=== PATIENT | male | born 1950 | race Caucasian/White ===

== ENCOUNTER → 2016-10-23 | Outpatient (REF) | payer MEDICARE, MEDICAID ==
[~2016-10-23] MED LIST: /HCTZ25TA GT; IRON65TA PO; MULTTAB22 PO; PANT40TA2 PO; PROP1TAB29 PO; RIBAPOW11 XX; [UNRECOGNIZED DRUG - CODE] SC; [UNRECOGNIZED DRUG - OTHER]
[2016-10-23 11:38] LABS: ADD MANUAL DIFFER YES; DIFF SLIDE NUMBER 155; MEAN CORPUSCULAR HEMOGLOBIN 23.8 pg (27.0-33.0); MEAN CORPUSCULAR HGB CONC 29.4 g/dl (32.0-36.5); MEAN CORPUSCULAR VOLUME 80.8 fl (80.0-96.0); RED CELL DISTRIBUTION WIDTH 16.7 % (11.5-14.5)
[2016-10-23 11:46] LABS: WHITE BLOOD COUNT 2.9 K/mm3 (4.0-10.0)
[2016-10-23 11:47] LABS: PLATELET COUNT, AUTOMATED 97 k/mm3 (150-450)
[2016-10-23 11:50] LABS: EOSINOPHILS 6 % (0-5)
[2016-10-23 11:51] LABS: ANISOCYTOSIS 1+; HYPOCHROMASIA 2+
[2016-10-23 12:09] LABS: ALBUMIN 3.2 GM/DL (3.2-5.2); ALBUMIN/GLOBULIN RATIO 0.74 (1.00-1.93); ALKALINE PHOSPHATASE 83 U/L (45-117); ALT/SGPT 18 U/L (12-78); ANION GAP 4 MEQ/L (8-16); AST/SGOT 17 U/L (15-37); BILIRUBIN,TOTAL 0.6 MG/DL (0.2-1.0); BLOOD UREA NITROGEN 15 MG/DL (7-18); CALCIUM LEVEL 8.8 MG/DL (8.8-10.2); CARBON DIOXIDE LEVEL 28 MEQ/L (21-32); CHLORIDE LEVEL 112 MEQ/L (98-107); CHOLESTEROL LEVEL 104 MG/DL (<200); CREATININE FOR GFR 1.13 MG/DL (0.70-1.30); GLOMERULAR FILTRATION RATE > 60.0 (>49); GLUCOSE, FASTING 90 MG/DL (80-110); POTASSIUM SERUM 4.6 MEQ/L (3.5-5.1); SODIUM LEVEL 144 MEQ/L (136-145); TOTAL PROTEIN 7.5 GM/DL (6.4-8.2); TRIGLYCERIDES LEVEL 165 MG/DL (<150); VITAMIN B12 LEVEL 325 PG/ML (247-911)
[2016-10-23 12:10] LABS: FOLATE 14.6 NG/ML (>5.4)
== END ==
LOC: M SFHCCLAY 07:57
PROVIDERS: ATTEND Family Medicine
DX: D69.6 Thrombocytopenia, unspecified (principal); I10 Essential (primary) hypertension; D64.9 Anemia, unspecified; E78.00 Pure hypercholesterolemia, unspecified
CPT/HCPCS: 80053; 80061; 82607; 82746; 83540; 85025; G0463

== ENCOUNTER → 2016-11-17 | Outpatient (REF) | payer MEDICARE, MEDICAID | LOC: M SFHCCLAY 18:54 | PROVIDERS: ATTEND Family Medicine | DX: D69.6 Thrombocytopenia, unspecified (principal); D64.9 Anemia, unspecified; B18.2 Chronic viral hepatitis C ==

== ENCOUNTER → 2016-12-22 | Outpatient (CLI) | payer MEDICARE, MEDICAID ==
[2016-12-22 14:46] LABS: BASO % 0.4 % (0.0-1.0); EOS # 0.1 10^3/uL (0.0-0.50); IMMATURE GRANULOCYTE % 0.4 % (0-0); LYMPH # 0.9 10^3/uL (1.5-4.5); LYMPH % 33.5 % (24.0-44.0); MEAN CORPUSCULAR HEMOGLOBIN 27.1 pg (27.0-33.0); MEAN CORPUSCULAR HGB CONC 30.1 g/dl (32.0-36.5); MONO # 0.7 10^3/uL (0.0-0.8); MONO % 24.5 % (0.0-5.0); NEUTROPHILS % 37.2 % (36.0-66.0); WHITE BLOOD COUNT 2.8 10^3/uL (4.0-10.0)
[2016-12-22 14:48] LABS: ADD MORPHOLOGY? YES; PLATELET COUNT, AUTOMATED 99 10^3/uL (150-450); POSITIVE MORPH POS FLAG; RED CELL DISTRIBUTION WIDTH 24.8 % (11.5-14.5)
[2016-12-22 14:50] LABS: IMMATURE PLATELET FRACTION % 10.8 % (0.0-10.9)
[2016-12-22 14:57] LABS: INR 1.13
[2016-12-22 15:15] LABS: ANISOCYTOSIS 1+; HYPOCHROMASIA 1+; MICROCYTOSIS 1+
[2016-12-24 10:31] LABS: HEPATITIS B SURFACE ANTIBODY NEGATIVE (POSITIVE)
== END ==
LOC: M LAB 14:04
PROVIDERS: ATTEND Internal Medicine Gastroenterology
DX: D50.0 Iron deficiency anemia secondary to blood loss (chronic) (principal); K21.9 Gastro-esophageal reflux disease without esophagitis; I10 Essential (primary) hypertension; R79.1 Abnormal coagulation profile; B18.0 Chronic viral hepatitis B with delta-agent; Z79.899 Other long term (current) drug therapy

== ENCOUNTER 2016-12-23 06:52 | Day surgery (SDC) | payer MEDICARE, MEDICAID ==
[~2016-12-23] VITALS: Ht 182.9 cm; Wt 90.7 kg
[2016-12-23] MEDS ORDERED: NS 1,000 ML IV SCH (07:15)
[2016-12-23] MEDS ORDERED: SIMETHICONE 40MG/0.6ML DROPS 30ML As Ordered ONE (07:23)
[2016-12-23] MEDS ORDERED: PROPOFOL 200 MG/20 ML VIAL As Ordered ONE ×2 (07:51→07:52)
[2016-12-23] MEDS ORDERED: LIDOCAINE 2% INJ 100 MG/5 ML SDV (FOR ANES.) As Ordered ONE (07:52)
[2016-12-23] MEDS ORDERED: ONDANSETRON 4MG/2ML VIAL (J2405) As Ordered ONE (08:09)
--- NOTE | 2016-12-23 08:09 | ROOR ---
Patient Name: Jacinto Arevalo Procedure Date: 12/23/2016 7:33 AM Date of : 1950 Age: 66 Room: [facility] Gender: Male Note Status: Finalized Procedure: Upper GI endoscopy Indications: Iron deficiency anemia Providers: Timmy Hanna MD Referring MD: LUKAS LYNNE DO Requesting Provider: Medicines: Monitored Anesthesia Care Complications: No immediate complications. Procedure: Pre-Anesthesia Assessment: - Prior to the procedure, a History and Physical was performed, and patient medications and allergies were reviewed. The patient is competent. The risks and benefits of the procedure and the sedation options and risks were discussed with the patient. All questions were answered and informed consent was obtained. Patient identification and proposed procedure were verified by the physician, the nurse and the photo tech in the procedure room. Mental Status Examination: alert and oriented. Airway Examination: normal oropharyngeal airway and neck mobility. Respiratory Examination: clear to auscultation. CV Examination: normal. Prophylactic Antibiotics: The patient does not require prophylactic antibiotics. Prior Anticoagulants: The patient has taken no previous anticoagulant or antiplatelet agents. ASA Grade Assessment: III - A patient with severe systemic disease. After reviewing the risks and benefits, the patient was deemed in satisfactory condition to undergo the procedure. The anesthesia plan was to use monitored anesthesia care (MAC). Immediately prior to administration of medications, the patient was re-assessed for adequacy to receive sedatives. The heart rate, respiratory rate, oxygen saturations, blood pressure, adequacy of pulmonary ventilation, and response to care were monitored throughout the procedure. The physical status of the patient was re-assessed after the procedure. The Endoscope was introduced through the mouth, and advanced to the second part of duodenum. The upper GI endoscopy was accomplished without difficulty. The patient tolerated the procedure well. Findings: Two columns of non-bleeding small (< 5 mm) varices were found in the lower third of the esophagus,. No stigmata of recent bleeding were evident and no red kassie signs were present. 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 Coagulation for bleeding prevention using argon plasma at 1 liter/minute and 30 pollack was successful. The duodenal bulb and second portion of the duodenum were normal. Impression: - Non-bleeding small (< 5 mm) esophageal varices. - Gastric antral vascular ectasia without bleeding. Treated with argon plasma coagulation (APC). - Normal duodenal bulb and second portion of the duodenum. - No specimens collected. Recommendation: - Patient has a contact number available for emergencies. The signs and symptoms of potential delayed complications were discussed with the patient. Return to normal activities tomorrow. Written discharge instructions were provided to the patient. - Clear liquid diet today, then advance as tolerated to resume regular diet. - Continue present medications. - Use Protonix (pantoprazole) 40 mg PO daily for 8 weeks. - Repeat upper endoscopy in 8 weeks for retreatment. - Return to GI clinic in 1 - 2 weeks. Please call GI clinic @ [phone] to make follow up appointment. - Return to primary care physician. Timmy Hanna MD Timmy Hanna MD 12/23/2016 8:09:37 AM This report has been signed electronically. Number of Addenda: 0 Note Initiated On: 12/23/2016 7:33 AM Estimated Blood Loss: Estimated blood loss was minimal.
[2016-12-23] MEDS ORDERED: ONDANSETRON 4MG/2ML VIAL (J2405) IV ONE (08:15)
[2016-12-23 08:31] VITALS: BP 111/62
== END 2016-12-23 09:02 | disposition home or self-care (01) ==
LOC: M OPP 06:52 → EDSTATUS 09:30
PROVIDERS: ATTEND Internal Medicine Gastroenterology
DX: D50.9 Iron deficiency anemia, unspecified (principal); I85.00 Esophageal varices without bleeding; K31.819 Angiodysplasia of stomach and duodenum without bleeding; I10 Essential (primary) hypertension; K21.9 Gastro-esophageal reflux disease without esophagitis; B18.2 Chronic viral hepatitis C; R06.83 Snoring; K74.60 Unspecified cirrhosis of liver; Z86.73 Personal history of transient ischemic attack (TIA), and cerebral infarction without residual deficits; Z79.899 Other long term (current) drug therapy
CPT/HCPCS: 43255; J2405

== ENCOUNTER 2017-01-27 13:53 | Inpatient (IN) | payer MEDICARE, MEDICAID ==
[~2017-01-27] VITALS: Ht 182.9 cm; Wt 102.3 kg
[2017-01-27] MEDS: OCUVITE 1 TAB PO SCH (09:00)
[2017-01-27] MEDS: PANTOPRAZOLE 40MG INJ (PROTONIX) (C9113) IV SCH ×2 (09:00→22:54)
[~2017-01-27 13:53] MED LIST changes: -ACET50TAOT PO; -CIPR-249 PO; -NS 1,000 ML IV ONE; -OCTR50IN SUBQ
--- NOTE | 2017-01-27 14:31 | HPEPDOC ---
[facility] Medical History & Physical Date of Admission Jan 27, 2017 History and Physical ATTENDING: Dr. Pedersen PCP: Dr Garcia Transactional Paralegal. Dr Hanna. CC: GI bleeding HPI: 66yoM with a past medical history significant for history of hepatitis C, cirrhosis, esophageal varices S/P APC 12/23 scheduled at [facility] for EGD with possible ablation today as per Dr Hanna. The patient was noted to have a hemoglobin of 6.3 on labs 01/27/17. He also reports recent dark stools. The patient's procedure has been postponed until 01/[address] Hanna. Denies any fevers, chills, weakness, fatigue, SANON, CP, SOB, cough, palpitations, abdominal pain, N/V/D or changes in bladder habits. Upon presentation to the hospital the patient was found to have GI bleeding, thus the hospitalist team was consulted. PMHx: History of hepatitis C. Treated as per infectious disease, Dr. Sherwood 2011. Cirrhosis Hypertension GERD Esophageal varices Iron deficiency anemia PSHX: Repair of right wrist fracture EGD 12/23/16, Dr. Hanna. Esophageal varices, gastric antral and vascular ectasia status post APC. SOCHX: Resides in: [facility] Marital Status: Kids: 3 Employment: Retired [employer] Tobacco use: Denies ETOH: Denies Illicit Drugs: History of marijuana in the past Recent travel: Patient states moving to [place] in the near future Advanced directives: None FAMHX: Mother: , old age Siblings: One sister breast cancer and lung cancer. Brother Parkinson's disease. Children: Alive, history of seizure disorder, renal cancer ROS: As noted in HPI, otherwise 11pt ROS of systems reviewed and unremarkable. PE: GEN: 66 yo M, appears stated age. Well-nourished, well developed. No acute distress. Alert and oriented x 3. Pleasant, interactive. HEENT: Normocephalic, atraumatic. Pupils are equal, round, and reactive to light. Extraocular movements are intact. No nystagmus appreciated. Sclera are nonicteric. Conjunctiva without injection. Nose midline. No facial asymmetry. Moist mucous membranes. Pharynx pale appearing and moist. Neck supple, trachea midline. No lymphadenopathy or thyromegaly appreciated. CHEST: Regular rate and rhythm, +S1, +S2 LUNGS: Clear to auscultation bilaterally. No wheezes, rales, or rhonchi. Breathing appears symmetric and easy. Patient is speaking in full sentences. No accessory muscle use. ABD: Round, soft, non-tender, non-distended. +Bowel sounds throughout. No rebound or guarding. No costovertebral angle tenderness. EXT: Pulses 2+ bilaterally dorsalis pedis and radial. No lower extremity edema appreciated. SKIN: Pale appearing, dry, warm. Capillary refill <2sec. No rashes. NEURO: Alert and oriented x 3. Cranial nerves III-XII are intact. No focal deficits appreciated. A&P: 66yoM with a past medical history significant for history of hepatitis C , cirrhosis, esophageal varices S/P APC 12/23 scheduled at [facility] for EGD with possible ablation today as per Dr Hanna. The patient was noted to have a hemoglobin of 6.3 on labs 01/27/17. He also reports recent dark stools. The patient's procedure has been postponed until 01/[address] Hanna. 1. The patient will be admitted to PCU for at least [address] Pedersen's service. Pt is discussed with Dr Gutiérrez. 2. GI bleeding. Consent for blood products placed on chart. Type and cross, transfuse 2 units PRBCs. One unit platelets. IV Protonix 40 mg twice a day. Monitor every [address] Hanna consulted and aware. 3. History of esophageal varices/gastric antral vascular ectasia. Status post APC 12/23/16. Plan is for EGD with possible ablation procedure 01/28/[address] Hanna. Propranolol 20 mg po daily. PPI. 4. H/O Iron deficiency anemia. 5. History of hepatitis C status post treatment as per Dr. Sherwood. 6. Cirrhosis. 7. Hypertension. DVT prophylaxis. SCD/TEDS The patient is a Full code. Laboratory Data Labs 24H Item Value Date Time White Blood Count 2.4 10^3/uL L 01/27/17 1246 Red Blood Count 1.91 10^6/uL L 01/27/17 1246 Hemoglobin 6.3 g/dl *L 01/27/17 1246 Hematocrit 20.3 % L 01/27/17 1246 Mean Corpuscular Volume 106.3 fl H 01/27/17 1246 Mean Corpuscular Hemoglobin 33.0 pg 01/27/17 1246 Mean Corpuscular Hemoglobin Concent 31.0 g/dl L 01/27/17 1246 Red Cell Distribution Width % 01/27/17 1246 Platelet Count 34 10^3/uL L 01/27/17 1246 Sodium Level 144 MEQ/L 10/23/16 0821 Potassium Level 4.6 MEQ/L 10/23/16 0821 Chloride Level 112 MEQ/L H 10/23/16 0821 Carbon Dioxide Level 28 MEQ/L 10/23/16 0821 Anion Gap 4 MEQ/L L 10/23/16 0821 Blood Urea Nitrogen 20 MG/DL H 01/27/17 1246 Creatinine 1.03 MG/DL 01/27/17 1246 Glomerular Filtration Rate > 60.0 01/27/17 1246 Fasting Glucose 90 MG/DL 10/23/16 0821 Calcium Level 8.8 MG/DL 10/23/16 0821 Iron Level 202 UG/DL H 01/27/17 1246 Total Iron Binding Capacity 348 UG/DL 01/27/17 1246 Transferrin % Saturation 58.0 % H 01/27/17 1246 Ferritin 94 NG/ML 01/27/17 1246 Total Bilirubin 0.6 MG/DL 01/27/17 1246 Direct Bilirubin 0.2 MG/DL 01/27/17 1246 Home Medications Scheduled (Multi For Him) 1 Tab Tab, 1 TAB PO DAILY Ciprofloxacin HCl (Cipro) 500 Mg Tab, 500 MG PO BID Octreotide Acetate (Octreotide Acetate) 50 Mcg/Ml Inj, 50 MCG SUBQ DAILY Pantoprazole Sodium (Pantoprazole Sodium) 40 Mg Tab, 40 MG PO BID Propranolol HCl (Propranolol HCl) 20 Mg Tab, 20 MG PO BID Scheduled PRN Acetaminophen (Acetaminophen) 500 Mg Tab, 1,000 MG PO for HEADACHE Allergies Coded Allergies: No Known Drug Allergy (Verified Allergy, Unknown, 12/22/16) Sissy Cruz Jan 27, 2017 14:31
[2017-01-27 14:42] VITALS: BP 109/55
[2017-01-27] MEDS ORDERED: ACETAMINOPHEN TAB 650MG DOSE (2X325MG) PO PRN (14:45)
[2017-01-27 16:10] VITALS: BP_SYST 105; BP_SYST 113; BP_SYST 97; BP_DIAS 50; BP_DIAS 54; BP_DIAS 58
[2017-01-27] MEDS ORDERED: ACET50TAOT PO (16:58)
--- NOTE | 2017-01-27 17:44 | IPNPDOC ---
Text Note Date of Service The patient was seen on 01/27/17. NOTE Called Dr Barrera for pancytopenia, awaiting call back. Consider outpatient hematology workup. lab sent HO,[place], I+O VS, [place], I+O Vital Signs Date Time Temp Pulse Resp B/P (MAP) Pulse Ox O2 Delivery O2 Flow Rate FiO2 01/27/17 16:10 66 113/58 (76) 72 97/50 (66) 82 105/54 (71) 01/27/17 14:42 98.0 18 99 Room Air KAROLINA VARMA MD Jan 27, 2017 17:44
[2017-01-27 19:45] VITALS: BP 124/61
[2017-01-28] VITALS (9 sets, daily range): BP systolic 103–155; BP diastolic 57–81
[2017-01-28 00:40] LABS: MEAN CORPUSCULAR HEMOGLOBIN 32.7 pg (27.0-33.0); MEAN CORPUSCULAR HGB CONC 32.2 g/dl (32.0-36.5); MEAN CORPUSCULAR VOLUME 101.5 fl (80.0-96.0); PLATELET COUNT, AUTOMATED 40 10^3/uL (150-450); RED CELL DISTRIBUTION WIDTH 25.7 % (11.5-14.5); WHITE BLOOD COUNT 2.1 10^3/uL (4.0-10.0)
[2017-01-28 00:48] LABS: RETIC HEMOGLOBIN EQUIVALENT 39.6 pg (24-36); RETICULOCYTE % 1.7 % (0.5-1.5)
[2017-01-28 00:49] LABS: REASON FOR REVIEW COMPREHENSIVE REVIEW
[2017-01-28 01:00] LABS: ANION GAP 5 MEQ/L (8-16); BLOOD UREA NITROGEN 17 MG/DL (7-18); CARBON DIOXIDE LEVEL 25 MEQ/L (21-32); CHLORIDE LEVEL 111 MEQ/L (98-107); CREATININE FOR GFR 0.93 MG/DL (0.70-1.30); GLOMERULAR FILTRATION RATE > 60.0 (>49); GLUCOSE, FASTING 86 MG/DL (80-110); POTASSIUM SERUM 4.1 MEQ/L (3.5-5.1); SODIUM LEVEL 141 MEQ/L (136-145)
[2017-01-28 01:01] LABS: CALCIUM LEVEL 8.1 MG/DL (8.8-10.2); MAGNESIUM LEVEL 1.9 MG/DL (1.8-2.4)
[2017-01-28 01:02] LABS: INR 1.16
[2017-01-28] MEDS ORDERED: CEFTRIAXONE SOD 1 GM in APPROPRIATE DILUENT 1 EA IV STA (09:22)
[2017-01-28] MEDS: PANTOPRAZOLE 40MG INJ (PROTONIX) (C9113) IV SCH ×2 (09:50→20:25)
[2017-01-28 09:57] LABS: VITAMIN B12 LEVEL 301 PG/ML (247-911)
[2017-01-28 09:58] LABS: FOLATE 17.3 NG/ML (>5.4)
[2017-01-28] MEDS ORDERED: OCTREOTIDE ACETATE 1,200 MCG in NS 238.8 ML IV SCH (10:00)
[2017-01-28] MEDS ORDERED: OCTREOTIDE ACETATE 100 MCG/ML VIAL (J2354) IV ONE (10:00)
[2017-01-28 10:15] LABS: MEAN CORPUSCULAR HEMOGLOBIN 31.4 pg (27.0-33.0); MEAN CORPUSCULAR HGB CONC 33.5 g/dl (32.0-36.5); MEAN CORPUSCULAR VOLUME 93.8 fl (80.0-96.0); RED CELL DISTRIBUTION WIDTH 23.6 % (11.5-14.5)
[2017-01-28 10:22] LABS: PLATELET COUNT, AUTOMATED 44 10^3/uL (150-450); POS COUNT POS FLAG
[2017-01-28 10:40] LABS: ALBUMIN 2.9 GM/DL (3.2-5.2); ALBUMIN/GLOBULIN RATIO 0.88 (1.00-1.93); ALKALINE PHOSPHATASE 66 U/L (45-117); ALT/SGPT 26 U/L (12-78); ANION GAP 6 MEQ/L (8-16); AST/SGOT 23 U/L (7-37); BILIRUBIN,TOTAL 2.2 MG/DL (0.2-1.0); BLOOD UREA NITROGEN 15 MG/DL (7-18); CALCIUM LEVEL 8.5 MG/DL (8.8-10.2); CARBON DIOXIDE LEVEL 24 MEQ/L (21-32); CHLORIDE LEVEL 111 MEQ/L (98-107); CREATININE FOR GFR 0.93 MG/DL (0.70-1.30); GLOMERULAR FILTRATION RATE > 60.0 (>49); GLUCOSE, FASTING 89 MG/DL (80-110); MAGNESIUM LEVEL 1.9 MG/DL (1.8-2.4); POTASSIUM SERUM 4.4 MEQ/L (3.5-5.1); SODIUM LEVEL 141 MEQ/L (136-145); TOTAL PROTEIN 6.2 GM/DL (6.4-8.2)
[2017-01-28] MEDS ORDERED: PROPOFOL 200 MG/20 ML VIAL As Ordered ONE (12:03)
[2017-01-28] MEDS ORDERED: LIDOCAINE 2% INJ 100 MG/5 ML SDV (FOR ANES.) As Ordered ONE (12:03)
--- NOTE | 2017-01-28 12:42 | ROOR ---
Patient Name: Jacinto Arevalo Procedure Date: 01/28/2017 11:52 AM Date of : 1950 Age: 66 Room: [facility] Gender: Male Note Status: Finalized Procedure: Upper GI endoscopy Indications: Active gastrointestinal bleeding, Watermelon stomach (GAVE syndrome) Providers: Timmy Hanna MD Referring MD: 2. Inpatient 2. Inpatient Requesting Provider: Medicines: Monitored Anesthesia Care Complications: No immediate complications. Procedure: Pre-Anesthesia Assessment: - Prior to the procedure, a History and Physical was performed, and patient medications and allergies were reviewed. The patient is competent. The risks and benefits of the procedure and the sedation options and risks were discussed with the patient. All questions were answered and informed consent was obtained. Patient identification and proposed procedure were verified by the physician, the nurse and the lap winder in the procedure room. Mental Status Examination: alert and oriented. Airway Examination: normal oropharyngeal airway and neck mobility. Respiratory Examination: clear to auscultation. CV Examination: normal. Prophylactic Antibiotics: The patient does not require prophylactic antibiotics. Prior Anticoagulants: The patient has taken no previous anticoagulant or antiplatelet agents. ASA Grade Assessment: III - A patient with severe systemic disease. After reviewing the risks and benefits, the patient was deemed in satisfactory condition to undergo the procedure. The anesthesia plan was to use monitored anesthesia care (MAC). Immediately prior to administration of medications, the patient was re-assessed for adequacy to receive sedatives. The heart rate, respiratory rate, oxygen saturations, blood pressure, adequacy of pulmonary ventilation, and response to care were monitored throughout the procedure. The physical status of the patient was re-assessed after the procedure. The Endoscope was introduced through the mouth, and advanced to the second part of duodenum. The upper GI endoscopy was accomplished without difficulty. The patient tolerated the procedure well. Findings: One column of non-bleeding grade I, small (< 5 mm) varices were found in the lower third of the esophagus,. No stigmata of recent bleeding were evident and no red kassie signs were present. 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 Coagulation for bleeding prevention using argon plasma at 0.8 liters/minute and 35 pollack was successful. Estimated blood loss: none. A few dispersed, 6 mm non-bleeding erosions were found in the gastric antrum. There were no stigmata of recent bleeding. Moderate portal hypertensive gastropathy was found in the entire examined stomach. No evidence of gastric varices on detailed exam No gross lesions were noted in the duodenal bulb and in the second portion of the duodenum. Impression: - Non-bleeding grade I and small (< 5 mm) esophageal varices. - Gastric antral vascular ectasia without bleeding. Treated with argon plasma coagulation (APC). - Non-bleeding erosive gastropathy. - Portal hypertensive gastropathy. No evidence of gastric varices on detailed exam. - No gross lesions in the duodenal bulb and in the second portion of the duodenum. - No specimens collected. Recommendation: - Patient has a contact number available for emergencies. The signs and symptoms of potential delayed complications were discussed with the patient. Return to normal activities tomorrow. Written discharge instructions were provided to the patient. - Resume previous diet. - Continue present medications. - Await pathology results. - Use a proton pump inhibitor IV BID today and then switch to oral pantoprazole 40 mg twice daily for atleast 3 months. - Ceftriaxone 1gm daily for 1 day followed by Cipro (ciprofloxacin) 500 mg PO BID for 1 week. - Repeat upper endoscopy in 1 month for retreatment. - Follow other recommendations as per the GI consult follow up note. - Return to GI clinic in 1 week. - Return to primary care physician. Timmy Hanna MD Timmy Hanna MD 01/28/2017 12:41:58 PM This report has been signed electronically. Number of Addenda: 0 Note Initiated On: 01/28/2017 11:52 AM Estimated Blood Loss: Estimated blood loss was minimal.
--- NOTE | 2017-01-28 13:40 | IPNPDOC ---
Date Seen The patient was seen on 01/28/17. Progress Note Interval history: Patient continues to have dark stools but no melanotic. Recieved total 5 PRBC transfusion and 2 Packs of platelets. Patient was started on IV antibiotics and Octreotide ( due to requirement of 5 units of PRBC wanted to include therapy for possible gastric varices). Patient underwent EGD in [facility] today. Patient tolerated EGD well. No immediate post procedure complications. EGD findings: - Non- bleeding grade 1, small esophageal varix. Gastric erosions and portal Hypertensive gastropathy. NO gastric varices on detailed exam. Noted Gastric antral vascular ectasia - with active bleeding/ oozing of blood. Treated with APC. No eren lesions in examined duodenum. Physical exam post procedure: Vitals: stable. Chest: bilateral clear air entry. Normal heart sounds. Abdomen: soft, Non distended, normal bowel sounds. 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 -- Erosive gastropathy ( likely from prior therapy). Recommendations: -- Full liquid diet for today. -- to give one more bag of platelets today. -- Give IV pantoprazole 40 mg twice daily for today and then switch to oral Pantoprazole 40 mg twice daily - to be taken registered art therapist on empty stomach and before bedtime for total of 3 months. -- Can change the antibiotics to oral Ciprofloxacin 50 mg twice daily for 7 days. -- Repeat upper GI endoscopy in 1 month. -- Will hold propranolol for now and resume at the time of discharge at 10 mg twice daily dose. -- Low salt diet (2gm sodium diet). Daily weights. Complete cessation of alcohol and Avoid NSAIDS. -- Will give octreotide subcutaneous injections for 4 weeks. ( discussed the empiric benefits and risks of this medication with patient and he agreed). -- Patient needs to set up new Gi after he moves to [place] for further management. -- Needs HCC surveillance ( AFP and USG liver) every 6 months - can be done at PMD clinic as well. -- Liver transplant referral electively based on the MELD and clinical course. -- Follow up in GI clinic 1 -2 weeks VS, I&O, 24H, Fishbone Vital Signs/I&O Vital Signs Date Time Temp Pulse Resp B/P (MAP) Pulse Ox O2 Delivery O2 Flow Rate FiO2 01/28/17 13:32 97.8 65 18 151/73 (99) 96 Room Air I&O- Last 24 Hours up to 6 AM 01/29/17 06:00 Intake Total 331 ml Output Total 850 ml Balance -519 ml Laboratory Data CBC/BMP Laboratory Tests 01/28/17 00:22 Red Blood Count 2.02 L, Mean Corpuscular Volume 101.5 H, Mean Corpuscular Hemoglobin 32.7, Mean Corpuscular Hemoglobin Concent 32.2, Red Cell Distribution Width 25.7 H, Calcium Level 8.1 L 01/28/17 10:05 Red Blood Count 2.90 L, Mean Corpuscular Volume 93.8, Mean Corpuscular Hemoglobin 31.4, Mean Corpuscular Hemoglobin Concent 33.5, Red Cell Distribution Width 23.6 H, Calcium Level 8.5 L, Aspartate Amino Transf (AST/SGOT ) 23, Alanine Aminotransferase (ALT/SGPT) 26, Alkaline Phosphatase 66, Total Bilirubin 2.2 #H, Total Protein 6.2 L, Albumin 2.9 L PIPER FERREIRA MD Jan 28, 2017 13:40
[2017-01-28] MEDS: PROPRANOLOL 20 MG TAB PO SCH (13:56)
[2017-01-28] MEDS: OCUVITE 1 TAB PO SCH (13:56)
[2017-01-28 16:23] LABS: BASO % 0.4 % (0.0-1.0); EOS # 0.1 10^3/uL (0.0-0.50); EOS % 2.4 % (0.0-3.0); IMMATURE GRANULOCYTE % 0.4 % (0-0); LYMPH # 0.5 10^3/uL (1.5-4.5); LYMPH % 19.7 % (24.0-44.0); MEAN CORPUSCULAR HEMOGLOBIN 31.8 pg (27.0-33.0); MEAN CORPUSCULAR HGB CONC 33.3 g/dl (32.0-36.5); MEAN CORPUSCULAR VOLUME 95.5 fl (80.0-96.0); MONO # 0.6 10^3/uL (0.0-0.8); MONO % 22.5 % (0.0-5.0); NEUTROPHILS # 1.4 10^3/uL (1.8-7.7); NEUTROPHILS % 54.6 % (36.0-66.0); RED CELL DISTRIBUTION WIDTH 24.3 % (11.5-14.5); WHITE BLOOD COUNT 2.5 10^3/uL (4.0-10.0)
[2017-01-28 16:26] LABS: PLATELET COUNT, AUTOMATED 43 10^3/uL (150-450)
[2017-01-28 16:27] LABS: IMMATURE PLATELET FRACTION % 7.6 % (0.0-10.9)
--- NOTE | 2017-01-28 18:26 | IPNPDOC ---
Text Note Date of Service The patient was seen on 01/28/17. NOTE Subjective: Patient is a 66 year-old male with a PMHx of HTN, Cirrossis 2/2 Hepatitis C, Esophageal varices, BARON and GERD who presented to [facility] as a direct admission for an EGD with Dr. Hanan. Patient received an EGD on 01/28 that revealed nonbleeding grade 1 and small esophageal varices gastric antral vascular ectasia without bleeding - s/p argon plasma coagulation, nonbleeding erosive gastropathy, portal hypertensive gastropathy. Patient was brought back to telemetry floor and continued with octreotide and H& H checks. Patient was seen and examined at the bedside. Currently, he denies any nausea, vomiting, chest pain, shortness of breath, palpitations, or abdominal pain. Vision is noted that he has experienced dark stools in the past, however, currently his stools are not as dark as before. Denies any dysuria. Objective: Vitals (See below) General: Lying in bed, no acute distress, comfortable, AAOx3 HEENT: NC, AT CVS: RRR, +S1S2 Lungs: Fair air entry b/l, -w/r/r Abdomen: Soft, ND, NT Extremities: - Edema, - Calf tenderness Assessment and plan: Acute blood loss anemia - 2/2 upper GI bleed - Presented as a direct admission from gastroenterology's office - Maintained hemodynamically stable, physical was nonrevealing - Found to be anemic on admission; hemoglobin of 6.6 - s/p 5 units PRBC 2 units plateletpheresis - Plan for transfusion of one additional unit of platelet - EGD 01/28: nonbleeding grade 1 and small esophageal varices, gastric antral vascular ectasia without bleeding - s/p argon plasma coagulation, nonbleeding erosive gastropathy, portal hypertensive gastropathy - Hemoglobin stable after 6 hours posttransfusion - Will continue to follow hemoglobin every 6 hours until tomorrow morning - Continue octreotide drip and Protonix IV twice a day - Patient has been cleared by gastroenterology for discharge home tomorrow; if hemoglobin remains stable - Discharge on Protonix 40 twice a day, Octreotide 50 mcg daily subcutaneously, Propranolol 20 twice a day, Ciprofloxacin 500 mg twice a day - Discussed case with hand zipper trimmer, Dr. Hanna; appreciate his input HTN Cirrhosis 2/2 Hepatitis C Esophageal varices BARON - Continue with multivitamins GERD - Currently on Protonix DVT prophylaxis - Continue with these compression devices VS,Fishbone, I+O VS, Fishbone, I+O Laboratory Tests 01/28/17 00:22 Red Blood Count 2.02 L, Mean Corpuscular Volume 101.5 H, Mean Corpuscular Hemoglobin 32.7, Mean Corpuscular Hemoglobin Concent 32.2, Red Cell Distribution Width 25.7 H, Calcium Level 8.1 L 01/28/17 10:05 Red Blood Count 2.90 L, Mean Corpuscular Volume 93.8, Mean Corpuscular Hemoglobin 31.4, Mean Corpuscular Hemoglobin Concent 33.5, Red Cell Distribution Width 23.6 H, Calcium Level 8.5 L, Aspartate Amino Transf (AST/SGOT ) 23, Alanine Aminotransferase (ALT/SGPT) 26, Alkaline Phosphatase 66, Total Bilirubin 2.2 #H, Total Protein 6.2 L, Albumin 2.9 L 01/28/17 15:49 Red Blood Count 2.92 L, Mean Corpuscular Volume 95.5, Mean Corpuscular Hemoglobin 31.8, Mean Corpuscular Hemoglobin Concent 33.3, Red Cell Distribution Width 24.3 H, Neutrophils (%) (Auto) 54.6, Lymphocytes (%) (Auto) 19.7 L, Monocytes (%) (Auto) 22.5 H, Eosinophils (%) (Auto) 2.4, Basophils (%) ( Auto) 0.4, Neutrophils # (Auto) 1.4 L, Lymphocytes # (Auto) 0.5 L, Monocytes # ( Auto) 0.6, Eosinophils # (Auto) 0.1, Basophils # (Auto) 0.0 Vital Signs Date Time Temp Pulse Resp B/P (MAP) Pulse Ox O2 Delivery O2 Flow Rate FiO2 01/28/17 16:00 99.2 64 18 144/81 (102) 96 Room Air I&O- Last 24 Hours up to 6 AM 01/29/17 06:00 Intake Total 531 ml Output Total 1550 ml Balance -1019 ml STEPHEN THOMAS MD Jan 28, 2017 18:26
[2017-01-29 01:43] LABS: MEAN CORPUSCULAR HEMOGLOBIN 32.4 pg (27.0-33.0); MEAN CORPUSCULAR HGB CONC 33.7 g/dl (32.0-36.5); RED CELL DISTRIBUTION WIDTH 24.4 % (11.5-14.5); WHITE BLOOD COUNT 2.2 10^3/uL (4.0-10.0)
[2017-01-29 01:45] LABS: PLATELET COUNT, AUTOMATED 48 10^3/uL (150-450)
[2017-01-29 04:00] VITALS: BP 125/57
[2017-01-29 06:13] LABS: MEAN CORPUSCULAR HEMOGLOBIN 32.3 pg (27.0-33.0); MEAN CORPUSCULAR HGB CONC 33.8 g/dl (32.0-36.5); MEAN CORPUSCULAR VOLUME 95.4 fl (80.0-96.0); RED CELL DISTRIBUTION WIDTH 24.2 % (11.5-14.5)
[2017-01-29 06:26] LABS: POS COUNT POS FLAG
[2017-01-29 06:27] LABS: PLATELET COUNT, AUTOMATED 49 10^3/uL (150-450)
[2017-01-29 06:28] LABS: ALBUMIN/GLOBULIN RATIO 0.86 (1.00-1.93); ALKALINE PHOSPHATASE 72 U/L (45-117); ALT/SGPT 27 U/L (12-78); ANION GAP 6 MEQ/L (8-16); AST/SGOT 26 U/L (7-37); BLOOD UREA NITROGEN 14 MG/DL (7-18); CALCIUM LEVEL 8.4 MG/DL (8.8-10.2); CARBON DIOXIDE LEVEL 26 MEQ/L (21-32); CHLORIDE LEVEL 110 MEQ/L (98-107); CREATININE FOR GFR 1.04 MG/DL (0.70-1.30); GLOMERULAR FILTRATION RATE > 60.0 (>49); GLUCOSE, FASTING 97 MG/DL (80-110); POTASSIUM SERUM 4.2 MEQ/L (3.5-5.1); SODIUM LEVEL 142 MEQ/L (136-145); TOTAL PROTEIN 6.5 GM/DL (6.4-8.2)
[2017-01-29 08:00] VITALS: BP 154/76
[2017-01-29] MEDS ORDERED: OCTR50IN SUBQ (09:44)
[2017-01-29] MEDS ORDERED: CIPR-249 PO (09:44)
[2017-01-29] MEDS ORDERED: PROP1TAB29 PO (09:44)
[2017-01-29] MEDS ORDERED: PANT40TA2 PO (09:44)
[2017-01-29 10:06] VITALS: BP 154/76
[2017-01-29] MEDS: PROPRANOLOL 20 MG TAB PO SCH (10:06)
--- NOTE | 2017-01-30 00:56 | DSES ---
DATE OF ADMISSION: 01/27/2017 DATE OF DISCHARGE: 01/29/2017 ATTENDING PHYSICIAN: Daniel Pedersen MD. PRIMARY CARE PROVIDER: Dr. Lorenzo. REFERRING PHYSICIAN: None. CONSULTING PHYSICIAN: Dr. Hanna. CONDITION ON DISCHARGE: Stable. FINAL DIAGNOSIS: Upper gastrointestinal (GI) bleed. PROCEDURES: Esophagogastroduodenoscopy (EGD) done 01/28/2017. HISTORY OF PRESENT ILLNESS: The patient is a 66-year-old male with a past medical history of hypertension, cirrhosis secondary to hepatitis C, esophageal varices, iron deficiency anemia, and gastroesophageal reflux disease (GERD), who presented to [facility] as a direct admission for an EGD with Dr. Hanna. The patient received an EGD on 01/28 that revealed non-bleeding grade 1 and small esophageal varices with gastric and antral vascular ectasia without bleeding status post argon plasma coagulation, non-bleeding erosive gastropathy, portal hypertensive gastropathy. Patient was brought back to telemetry floor and continued with an octreotide drip and hemoglobin and hematocrit checks. HOSPITAL COURSE: 1. Acute blood loss anemia secondary to upper GI bleed. Presented as a direct admission from arc welder's office. Patient remained hemodynamically stable throughout hospital course. Physicals were nonrevealing, found to be anemic upon admission with hemoglobin of 6.6. He is status post five units of packed red blood cells (PRBCs) transfusion and two units of platelets transfusion. Patient had an EGD on 01/28 that revealed non-bleeding grade 1 and small esophageal varices, gastric and vascular ectasia without bleeding status post argon plasma coagulation, non-bleeding erosive gastropathy and portal hypertensive gastropathy was noted. Hemoglobin remained stable after transfusion and has remained stable this morning. I have discussed the case in detail with Dr. Hanna. The patient will be discharged home today with Protonix 40 twice a day, propranolol 20 twice a day, ciprofloxacin 500 mg by mouth twice a day for the next 7 days. He has also been given a script for octreotide 50 mcg subcutaneously daily. Pharmacist as an outpatient has been contacted and I have discussed the requirement for preauthorization with Dr. Hanna. He has advised me that at this point octreotide will not be required urgently; however, we will work on pre-approval/preauthorization as an outpatient. 2. Hypertension. 3. Cirrhosis secondary to hepatitis C. 4. Esophageal varices. 5. Iron deficiency anemia. Continue with multivitamin. 6. GERD. Continue with Protonix. 7. Deep venous thrombosis (DVT) prophylaxis. Continue with decompression devices. DISCHARGE MEDICATIONS: Patient will be discharged home with the following medication list: - ciprofloxacin 500 mg by mouth twice a day to be taken as directed - octreotide 50 mcg subcutaneously daily to be taken as directed - multivitamin one tablet by mouth daily - Protonix 40 mg by mouth twice a day - propranolol 20 mg by mouth twice a day DISCHARGE INSTRUCTIONS: Patient has been advised to followup with his primary care provider, Dr. Lorenzo and his arc welder, Dr. Hanna within the next 7 days. He has been advised to remain compliant with medications and to return to the emergency room if he experiences any problems. Time spent on discharge greater than 35 minutes.
== END 2017-01-29 10:33 | disposition home or self-care (01) | DRG 378 ==
LOC: M PCU 14:23
PROVIDERS: ADMIT Hospitalist; ATTEND Internal Medicine
PROC: 30253N1 (ICD-10-PCS; 2017-01-27)
PROC: 30253R1 (ICD-10-PCS; 2017-01-27)
PROC: 0W3P8ZZ Control Bleeding in Gastrointestinal Tract, Via Natural or Artificial Opening Endoscopic (ICD-10-PCS; principal; 2017-01-28 11:30)
DX: K31.811 Angiodysplasia of stomach and duodenum with bleeding (principal); D61.818 Other pancytopenia; D62 Acute posthemorrhagic anemia; K74.60 Unspecified cirrhosis of liver; K31.89 Other diseases of stomach and duodenum; I85.10 Secondary esophageal varices without bleeding; I10 Essential (primary) hypertension; K21.9 Gastro-esophageal reflux disease without esophagitis; D50.9 Iron deficiency anemia, unspecified; Z79.899 Other long term (current) drug therapy

== ENCOUNTER → 2017-01-27 | Outpatient (CLI) | payer MEDICARE, MEDICAID ==
[~2017-01-27] VITALS: Ht 182.9 cm; Wt 94.8 kg
[~2017-01-27] MED LIST changes: +ACET50TAOT PO; +CIPR-249 PO; +NS 1,000 ML IV ONE; +OCTR50IN SUBQ
[2017-01-27 12:54] VITALS: BP 129/61
[2017-01-27 13:01] LABS: EOS # 0.1 10^3/uL (0.0-0.50); EOS % 3.3 % (0.0-3.0); IMMATURE GRANULOCYTE % 0.4 % (0-0); LYMPH # 0.5 10^3/uL (1.5-4.5); LYMPH % 22.1 % (24.0-44.0); MEAN CORPUSCULAR VOLUME 106.3 fl (80.0-96.0); MONO # 0.4 10^3/uL (0.0-0.8); MONO % 14.3 % (0.0-5.0); NEUTROPHILS # 1.5 10^3/uL (1.8-7.7); NEUTROPHILS % 59.9 % (36.0-66.0); WHITE BLOOD COUNT 2.4 10^3/uL (4.0-10.0)
[2017-01-27 13:19] LABS: PLATELET COUNT, AUTOMATED 34 10^3/uL (150-450)
[2017-01-27 13:20] LABS: ADD MORPHOLOGY? YES; ANISOCYTOSIS 2+; HYPOCHROMASIA 3+; POSITIVE MORPH POS FLAG
[2017-01-27 13:21] LABS: PLATELET F 3.7
[2017-01-27 13:27] LABS: ALBUMIN/GLOBULIN RATIO 0.75 (1.00-1.93); ALKALINE PHOSPHATASE 72 U/L (45-117); ALT/SGPT 28 U/L (12-78); AST/SGOT 23 U/L (7-37); BILIRUBIN,DIRECT 0.2 MG/DL (0.0-0.2); BILIRUBIN,TOTAL 0.6 MG/DL (0.2-1.0); BLOOD UREA NITROGEN 20 MG/DL (7-18); CREATININE FOR GFR 1.03 MG/DL (0.70-1.30); FERRITIN 94 NG/ML (26-388); GLOMERULAR FILTRATION RATE > 60.0 (>49); TOTAL IRON BINDING CAPACITY 348 UG/DL (250-450)
== END ==
LOC: M OPP 12:25
PROVIDERS: ATTEND Internal Medicine Gastroenterology
DX: K92.2 Gastrointestinal hemorrhage, unspecified (principal); K31.811 Angiodysplasia of stomach and duodenum with bleeding; K74.60 Unspecified cirrhosis of liver; I85.00 Esophageal varices without bleeding; D64.9 Anemia, unspecified; K76.6 Portal hypertension; K31.89 Other diseases of stomach and duodenum; K21.9 Gastro-esophageal reflux disease without esophagitis; I10 Essential (primary) hypertension; B18.2 Chronic viral hepatitis C; R06.83 Snoring; G47.30 Sleep apnea, unspecified; Z86.73 Personal history of transient ischemic attack (TIA), and cerebral infarction without residual deficits; Z79.899 Other long term (current) drug therapy; Z80.3 Family history of malignant neoplasm of breast; Z80.1 Family history of malignant neoplasm of trachea, bronchus and lung

== ENCOUNTER → 2017-02-10 | Outpatient (CLI) | payer MEDICARE, MEDICAID ==
[~2017-02-10] MED LIST changes: +ACET50TAOT PO; +CIPR-249 PO; +OCTR50IN SUBQ
--- NOTE | 2017-02-10 10:10 | REP ---
LIMITED ABDOMINAL ULTRASOUND: 02/10/2017. Clinical history: Splenomegaly. Cirrhosis. Findings: Sonographic evaluation shows the spleen 12.1 x 10.3 x 5.2 cm. This gives a splenic index of 648. Subjectively it appears normal. By splenic index measurements, less than 480 is normal so this is only very mild enlargement. Left kidney is 12.5 x 5.6 x 6.2 cm. There are three cysts in the left kidney, exophytic medial cyst 3.7 x 3.4 x 3.2 cm. The exophytic lateral upper pole 2 x 2.2 x 1.4 cm. Another exophytic cyst mid pole 3.5 x 3.5 x 2.8 cm. In addition in the lateral aspect of the lower pole is a solid appearing nodule 2 x 1.8 x 1.5 cm. This must be viewed with suspicion. There is no hydronephrosis, echogenic focus to suggest stone or perinephric fluid. Impression: 1. Spleen without focal lesion and only minimally enlarged by splenic index measurement. Subjectively it is normal appearance. 2. Three cysts in the left kidney without hydronephrosis or stone. However, there is a solid exophytic lesion lateral aspect lower pole 2 x 1.8 x 1.5 cm. This warrants further evaluation with dedicated CT without and with contrast. Neoplasm is not excluded. Signed by Cricket Mcpherson MD 02/10/2017 08:27 P
== END ==
LOC: M RAD 08:11
PROVIDERS: ATTEND Internal Medicine Hematology & Oncology
DX: R16.1 Splenomegaly, not elsewhere classified (principal)